=== PATIENT | female | born 1965 ===

== ENCOUNTER 2018-06-20 09:58 | Emergency (ER) | payer OTHER ==
[~2018-06-20] VITALS: Ht 165.1 cm; Wt 98.9 kg
[2018-06-20] MEDS ORDERED: METFORMIN HCL500 MG (10:07)
[2018-06-20] MEDS ORDERED: AVALIDE 300-121 EACH (10:07)
== END 2018-06-20 14:40 | disposition home or self-care (01) ==
LOC: ER 09:58
DX: K29.70 Gastritis, unspecified, without bleeding (principal)